=== PATIENT | male | born 1990 | race Caucasian/White ===

== ENCOUNTER 2018-03-21 07:22 | Inpatient (IN) | payer OTHER, MEDICAID ==
[~2018-03-21] VITALS: Ht 182.9 cm; Wt 68.5 kg
[2018-03-21 07:26] VITALS: O2SAT 99
[2018-03-21] MEDS ORDERED: DIPHTH/TETANUS/ACEL PERTUSSIS (BOOSTER) 0.5 ML VIAL/PFS IM ONE (07:27)
[2018-03-21] MEDS ORDERED: ceFAZolin 2 GM PREMIX 50 ML ONE (07:28)
[2018-03-21 07:42] LABS: AUTOMATED NEUTROPHIL # 7.2 TH/MM3 (1.8-7.7); BASOPHIL # 0.1 TH/MM3 (0-0.2); BASOPHIL % 0.9 % (0.0-2.0); EOSINOPHIL # 0.2 TH/MM3 (0-0.4); EOSINOPHIL % 2.1 % (0.0-4.0); HEMATOCRIT 48.2 % (39.0-51.0); HEMOGLOBIN 16.3 GM/DL (13.0-17.0); LYMPH % 26.2 % (9.0-44.0); LYMPHOCYTE # 2.9 TH/MM3 (1.0-4.8); MEAN CORPUSCULAR HEMOGLOBIN 30.1 PG (27.0-34.0); MEAN CORPUSCULAR HGB CONC 33.9 % (32.0-36.0); MEAN PLATELET VOLUME 8.6 FL (7.0-11.0); MONO % 6.2 % (0.0-8.0); MONOCYTE # 0.7 TH/MM3 (0-0.9); NEUT % 64.6 % (16.0-70.0); PLATELET COUNT 304 TH/MM3 (150-450); RED BLOOD COUNT 5.42 MIL/MM3 (4.50-5.90); RED CELL DISTRIBUTION WIDTH 12.9 % (11.6-17.2); WHITE BLOOD COUNT 11.2 TH/MM3 (4.0-11.0)
[2018-03-21 07:53] LABS: INTERNATIONAL NORMALIZED RATIO 1.1 RATIO; PROTHROMBIN TIME - PATIENT 10.9 SEC (9.8-11.6)
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
[2018-03-21 08:00] VITALS: BP 128/68; PULSE 82; RESP 16; O2SAT 99
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
[2018-03-21] MEDS ORDERED: IOHEXOL 350 MG/ML 10 ML VIAL (for RAD DIAG) IVCONTRAST ONE (08:07)
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
[2018-03-21] MEDS ORDERED: MORPHINE SULFATE 4 MG/ML INJ IV PUSH ONE (09:00)
[2018-03-21] MEDS ORDERED: LIDOCAINE 1%/EPINEPHrine 1:100,000 SOLN 30 ML VIAL ONE (09:24)
[2018-03-21] MEDS ORDERED: LIDOCAINE 1%/EPINEPHrine 1:100,000 SOLN 20 ML VIAL INFIL ONE (09:30)
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
[2018-03-21] MEDS ORDERED: HYDROmorphone HCL PF 0.5 MG/0.5 ML SYRINGE IV PUSH PRN (10:30)
[2018-03-21] MEDS ORDERED: NURSING INFORMATION XX SCH (10:30)
[2018-03-21] MEDS ORDERED: ONDANSETRON ODT 4 MG TAB PO PRN (10:30)
[2018-03-21] MEDS ORDERED: CHLORHEXIDINE GLUCONATE 2 % 1 PACK (2 CLOTHS) TOP PRN (10:30)
[2018-03-21] MEDS: LACTATED RINGER'S 1000 ML INJ 1,000 ML IV SCH ×2 (11:23→20:19)
[2018-03-21] MEDS: HYDROmorphone HCL PF 0.5 MG/0.5 ML SYRINGE IV PUSH PRN ×4 (11:48→22:31)
[2018-03-21 11:52] VITALS: BP 127/62
[2018-03-21 12:28] VITALS: BP 124/67; PULSE 76; RESP 18; TEMP 97.8; O2SAT 98
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
[2018-03-21 16:22] VITALS: BP 119/67; PULSE 69; RESP 17; TEMP 98.2; O2SAT 98
[2018-03-21 20:00] VITALS: BP 137/65; PULSE 77; RESP 20; TEMP 98.2; O2SAT 97
[2018-03-21] MEDS ORDERED: DOCUSATE SODIUM 100 MG CAP PO SCH (21:00)
[2018-03-21] MEDS ORDERED: LACTATED RINGER'S 1000 ML IV PRN (23:30)
[2018-03-21] MEDS ORDERED: CHLORHEXIDINE GLUCONATE 2 % 1 PACK (2 CLOTHS) TOPICAL PRN (23:30)
[2018-03-21] MEDS ORDERED: METOPROLOL TARTRATE 25 MG TAB PO PRN (23:30)
[2018-03-21] MEDS ORDERED: POVIDONE IODINE 5% (ANTISEPSIS KIT) 4 APPLICATIONS EACH NARE PRN (23:30)
[2018-03-21] MEDS ORDERED: SODIUM CHLORID 0.9% 500 ML IV PRN (23:30)
[2018-03-22] VITALS: BP 123/59; PULSE 103; RESP 22; TEMP 98.7; O2SAT 97
[2018-03-22] MEDS: HYDROmorphone HCL PF 0.5 MG/0.5 ML SYRINGE IV PUSH PRN ×4 (02:11→20:09)
[2018-03-22 04:00] VITALS: BP 134/62; PULSE 97; RESP 20; TEMP 98.1; O2SAT 97
[2018-03-22] MEDS ORDERED: CHLORHEXIDINE GLUCONATE 2 % 1 PACK (2 CLOTHS) TOP SCH (04:00)
[2018-03-22] MEDS: LACTATED RINGER'S 1000 ML INJ 1,000 ML IV SCH ×2 (06:19→16:02)
[2018-03-22 06:29] LABS: AUTOMATED NEUTROPHIL # 7.4 TH/MM3 (1.8-7.7); BASOPHIL # 0.1 TH/MM3 (0-0.2); BASOPHIL % 0.6 % (0.0-2.0); EOSINOPHIL # 0.1 TH/MM3 (0-0.4); EOSINOPHIL % 1.1 % (0.0-4.0); HEMATOCRIT 41.6 % (39.0-51.0); HEMOGLOBIN 14.3 GM/DL (13.0-17.0); LYMPH % 18.8 % (9.0-44.0); MEAN CELL VOLUME 88.9 FL (80.0-100.0); MEAN CORPUSCULAR HEMOGLOBIN 30.6 PG (27.0-34.0); MEAN CORPUSCULAR HGB CONC 34.5 % (32.0-36.0); MEAN PLATELET VOLUME 9.1 FL (7.0-11.0); MONO % 9.1 % (0.0-8.0); NEUT % 70.4 % (16.0-70.0); PLATELET COUNT 234 TH/MM3 (150-450); RED BLOOD COUNT 4.68 MIL/MM3 (4.50-5.90); RED CELL DISTRIBUTION WIDTH 12.7 % (11.6-17.2); WHITE BLOOD COUNT 10.5 TH/MM3 (4.0-11.0)
[2018-03-22] MEDS ORDERED: RESP: ALBUTEROL 2.5 MG/IPRATROPIUM 0.5 MG NEB (PRN) NEB (06:30)
[2018-03-22] MEDS ORDERED: oxyCODONE/ACETAMINOPHEN 5 MG/325 MG TAB PO PRN (06:30)
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
[2018-03-22 06:59] LABS: BICARBONATE 26.9 MEQ/L (21.0-32.0); CALCIUM 8.3 MG/DL (8.5-10.1); CREATININE 0.81 MG/DL (0.60-1.30)
[2018-03-22] MEDS: DOCUSATE SODIUM 50 MG/SENNA 8.6 MG TAB PO SCH ×2 (07:52→20:06)
[2018-03-22 08:00] VITALS: BP 120/57; PULSE 78; RESP 17; TEMP 98.2; O2SAT 97
[2018-03-22] MEDS ORDERED: GENTAMICIN SULFATE 80 MG/2 ML VIAL ONE ×2 (08:43→10:58)
[2018-03-22] MEDS ORDERED: ceFAZolin INJ 1,000 MG VIAL ONE (08:43)
[2018-03-22] MEDS: oxyCODONE/ACETAMINOPHEN 10 MG/325 MG TAB PO PRN ×4 (09:38→23:04)
[2018-03-22] MEDS ORDERED: ACETAMINOPHEN 1000 MG/100 ML 100 ML IV ONE (10:48)
[2018-03-22] MEDS ORDERED: fentaNYL CITRATE 250 MCG/5 ML AMP ONE (10:48)
[2018-03-22] MEDS ORDERED: LACTATED RINGER'S 1000 ML INJ 1,000 ML IV SCH (11:47)
[2018-03-22] MEDS ORDERED: CEPH-460 PO (11:49)
[2018-03-22] MEDS ORDERED: HYDR-3288 PO (11:50)
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
[2018-03-22] MEDS ORDERED: LIDOCAINE HCL 1% PF 5 ML SYRINGE OTHER ONE (12:00)
[2018-03-22] MEDS ORDERED: NEOSTIGMINE 5 MG/5 ML SYRINGE IV PUSH ONE (12:00)
[2018-03-22] MEDS ORDERED: GLYCOPYRROLATE 1 MG/5 ML SYRINGE IV PUSH ONE (12:00)
[2018-03-22] MEDS ORDERED: ONDANSETRON HCL 4 MG/2 ML VIAL IV PUSH ONE (12:00)
[2018-03-22] MEDS ORDERED: LACTATED RINGER'S 1000 ML INJ 1,000 ML IV ONE (12:00)
[2018-03-22] MEDS ORDERED: PROPOFOL 200 MG/20 ML AMP IV ONE (12:00)
[2018-03-22] MEDS ORDERED: DO NOT ADM ANY ANTICOAGULANT DRUGS PRN (12:00)
[2018-03-22] MEDS ORDERED: DEXAMETHASONE SOD PHOS 4 MG/ML VIAL IV ONE (12:00)
[2018-03-22] MEDS ORDERED: ROCURONIUM INJ 50 MG/5 ML SYRINGE IV PUSH ONE (12:00)
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
[2018-03-22] MEDS ORDERED: *morphine SULFATE 8 MG/ML PERIprocedure ONLY ONE (12:38)
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
[2018-03-22 15:09] VITALS: BP 139/63; PULSE 66; RESP 16; TEMP 98; O2SAT 97
[2018-03-22] MEDS: ceFAZolin 2 GM PREMIX 50 ML IV SCH ×2 (15:10→23:05)
[2018-03-22 19:26] VITALS: BP 126/59; PULSE 85; RESP 18; TEMP 97.8; O2SAT 98
[2018-03-22 23:03] VITALS: BP 113/56; PULSE 62; RESP 18; TEMP 98.1; O2SAT 95
[2018-03-23] MEDS: oxyCODONE/ACETAMINOPHEN 10 MG/325 MG TAB PO PRN ×2 (05:01→08:49)
--- NOTE | 2018-03-23 06:45 | PD.ORT.PN ---
Subjective Subjective Remarks POd 1 s/p I&D left elbow doing well. pain controlled. no complaints Objective Vitals Vital Signs Date Time Temp Pulse Resp B/P (MAP) Pulse Ox O2 Delivery O2 Flow Rate FiO2 03/22/18 23:03 98.1 62 18 113/56 (75) 95 03/22/18 19:26 97.8 85 18 126/59 (81) 98 03/22/18 18:52 Room Air 03/22/18 15:09 98.0 66 16 139/63 (88) 97 03/22/18 12:40 69 14 128/72 (90) 97 Room Air 03/22/18 12:30 66 14 125/76 (92) 97 Room Air 03/22/18 12:15 88 14 134/71 (92) 97 Room Air 03/22/18 12:08 97.3 68 14 112/60 (77) 100 Simple Mask 8 03/22/18 08:00 98.2 78 17 120/57 (78) 97 I/O 03/22/18 03/22/18 03/22/18 03/23/18 03/23/18 03/23/18 07:00 15:00 23:00 07:00 15:00 23:00 Intake Total 720 ml 900 ml 480 ml 460 ml Output Total 950 ml 550 ml Balance -230 ml 350 ml 480 ml 460 ml Intake Oral 720 ml 480 ml 360 ml IV Total 100 ml Other 900 ml Output Urine Total 950 ml 500 ml Estimated Blood Loss 50 ml # Voids 3 4 # Bowel Movements 0 Result Diagram: 03/22/18 0504 03/22/18 0504 Imaging Last 24 hours Impressions Knee X-Ray 03/21/18838 Signed Impressions: CONCLUSION: Unremarkable examination. Hip X-Ray 03/21/18838 Signed Impressions: CONCLUSION: No evidence of recent bony injury. Pelvis X-Ray 03/21/18723 Signed Impressions: CONCLUSION: No evidence of acute bony or soft tissue injury. Head CT 03/21/18723 Signed Impressions: CONCLUSION: 1. Unremarkable exam 2. No evidence of acute infarct, hemorrhage, edema or contusion. 3. No evidence of extra-axial hemorrhage. Chest X-Ray 03/21/18723 Signed Impressions: CONCLUSION: No acute process. Chest CT 03/21/18723 Signed Impressions: CONCLUSION: 1. Normal exam 2. No evidence of acute bony or soft tissue trauma. Cervical Spine CT 03/21/18723 Signed Impressions: CONCLUSION: Normal evaluation of the cervical spine; no evidence of acute disc herniation, spinal cord abnormality or acute bony process. Abdomen/Pelvis CT 03/21/18723 Signed Impressions: CONCLUSION: 1. Normal exam. 2. No evidence of acute soft tissue or bony trauma. Objective Remarks LUE: pressure dressing in place. clean and dry. nvi distally with good motion of fingers and wrist LLE: pain in hip with hip flexion. nvi distally RUE: pain in wrist. noticeable swelling of ulnar styloid. pain with supination. nvi Assessment & Plan Assessment and Plan 1) Left Open elbow wound s/p I&D - POD 1 -WBAT -daily dressing changes -keep clean and dry -ortho clear for DC -f/u with [facility] or PA in 2 weeks 2) Left Hip Pain -XR and CT neg for fx 3) Right Wrist Pain -XR neg for fx Wai Alonso/Bag Washer VICKY March 23, 2018 06:45
[2018-03-23 08:00] VITALS: BP 123/57; PULSE 68; RESP 18; TEMP 98.1; O2SAT 100
[2018-03-23] MEDS: DOCUSATE SODIUM 50 MG/SENNA 8.6 MG TAB PO SCH (08:48)
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
== END 2018-03-23 12:32 | disposition home or self-care (01) | DRG 908 ==
LOC: NEPI 07:22 → NEDA 10:15 → OBSVTOIN 10:23 → EDBD 10:23 → N06B 12:17
PROVIDERS: ADMIT Surgery Trauma Surgery; ATTEND Surgery Trauma Surgery
PROC: 0CQ0XZZ Repair Upper Lip, External Approach (ICD-10-PCS; 2018-03-21)
PROC: 0JQH0ZZ Repair Left Lower Arm Subcutaneous Tissue and Fascia, Open Approach (ICD-10-PCS; 2018-03-22)
PROC: 0JC Subcutaneous Tissue and Fascia, Extirpation (ICD-10-PCS; 2018-03-22)
PROC: 0MB40ZZ Excision of Left Elbow Bursa and Ligament, Open Approach (ICD-10-PCS; principal; 2018-03-22 10:35)
DX: S51.022A Laceration with foreign body of left elbow, initial encounter (principal); S06.0X9A Concussion with loss of consciousness of unspecified duration, initial encounter; S63.501A Unspecified sprain of right wrist, initial encounter; S01.511A Laceration without foreign body of lip, initial encounter; H04.203 Unspecified epiphora, bilateral; S70.02XA Contusion of left hip, initial encounter; R40.2423 Glasgow coma scale score 9-12, at hospital admission; V89.0XXA Person injured in unspecified motor-vehicle accident, nontraffic, initial encounter
CPT/HCPCS: 70450; 71045; 71260; 72125; 72170; 73070; 73100; 73502; 73564; 74177; 80048; 80307; 85025; 85610; 85730; 86850; 86900; 86901; 90715; 94150; J0131; J0690; J1100; J1170; J1580; J2270; J2405; J2710; J3010; J7120; Q9967